=== PATIENT | female | born 1975 | race African-American/Black ===

== ENCOUNTER 2024-02-06 11:07 | Inpatient (IN) | payer OTHER ==
[~2024-02-06] VITALS: Ht 165.1 cm; Wt 64.4 kg
[2024-02-06] MEDS ORDERED: METHOCARBAMOL 750MG TABLET PO SCH (12:30)
[2024-02-06 13:01] LABS: BASOPHILS % 0.5 % (0.0-2.0); DIFFERENTIAL COMMENT 0; EOSINOPHILS % 0.5 % (0.0-5.0); HEMATOCRIT. 42.3 % (36.0-48.0); HEMOGLOBIN. 13.9 g/dL (12.0-16.0); LYMPHOCYTES % 15.5 % (20.0-50.0); MEAN CORPUSCULAR HEMOGLOBIN 24.6 pg (28.0-32.0); MEAN CORPUSCULAR HGB CONC 32.8 g/dL (31.0-37.0); MEAN CORPUSCULAR VOLUME 74.8 fL (81.0-99.0); MEAN PLATELET VOLUME 7.7 fl (7.4-10.4); NEUTROPHILS % 77.5 % (40.0-76.0); PLATELET 231 x1000/uL (130-400); RED BLOOD CELL COUNT 5.65 mill/uL (4.2-5.4); RED CELL DISTRIBUTION WIDTH 15.8 % (11.6-14.6); WHITE BLOOD COUNT 6.9 x1000/uL (4.5-11.0)
[2024-02-06] MEDS: HYDROCODONE/ACETAMINOPHEN 5/325MG TABLET PO ONE (13:02)
[2024-02-06] MEDS: LIDOCAINE 5% PATCH TOP SCH (13:02)
[2024-02-06] MEDS: METHOCARBAMOL 500MG TABLET PO SCH (13:02)
[2024-02-06 13:15] LABS: ALANINE AMINOTRANSFERASE 20 IU/L (10-49); ALBUMIN 4.5 g/dL (3.2-4.8); ASPARTATE AMINOTRANSFERASE 32 IU/L (<34); BILIRUBIN TOTAL 0.6 mg/dL (0.1-1.0); CALCIUM 9.4 mg/dL (8.7-10.4); CARBON DIOXIDE 24 mEq/L (21-32); CHLORIDE 106 mEq/L (98-107); CREATININE 0.9 mg/dL (0.6-1.0); GLUCOSE 144 mg/dL (70-105); POTASSIUM 3.2 mEq/L (3.5-5.1); PROTEIN TOTAL 7.7 g/dL (6.0-8.3); SODIUM 135 mEq/L (136-145); UREA NITROGEN BLOOD 9 mg/dL (9-23)
[2024-02-06 13:20] LABS: HCG SCREEN NEGATIVE
[2024-02-06] MEDS: ONDANSETRON HCL 4MG/2ML INJ IV ONE (13:26)
[2024-02-06] MEDS: POTASSIUM CHLORIDE 20MEQ TABLET SR PO ONE (16:14)
[2024-02-06] MEDS: MORPHINE SULFATE 4 MG/ML INJ (FOR IV/IM USE) IV ONE (16:30)
[2024-02-06] MEDS: POTASSIUM CHLORIDE 20MEQ/PACKET PO NR (16:30)
[2024-02-06] MEDS: DEXT 5%/LACTATED RINGERS 1,000 ML IV SCH (16:31)
[2024-02-06] MEDS ORDERED: ACETAMINOPHEN 325MG TABLET PO PRN (17:45)
[2024-02-06] MEDS ORDERED: IPRATROPIUM/ALBUTEROL 0.5-3(2.5)MG/3ML NEB HHN PRN (17:45)
[2024-02-06] MEDS ORDERED: ONDANSETRON HCL 4MG/2ML INJ IV PRN (17:45)
[2024-02-06] MEDS ORDERED: GUAIFENESIN 200MG/10ML SUGAR FREE UDC PO PRN (17:45)
[2024-02-06] MEDS: MAGNESIUM 2 G PREMIX 50 ML IV NR (21:02)
[2024-02-06 21:06] LABS: PROTHROMBIN TIME 11.6 sec (9.6-11.0)
[2024-02-06] MEDS ORDERED: NALOXONE HCL 0.4MG/ML VIAL IV PRN (21:30)
[2024-02-06 21:38] LABS: CLARITY URINE CLEAR (CLEAR); COLOR URINE YELLOW (YELLOW); GLUCOSE URINE NEGATIVE (NEGATIVE); KETONES URINE NEGATIVE (NEGATIVE); LEUKOCYTE ESTERASE URINE NEGATIVE (NEGATIVE); NITRITE URINE NEGATIVE (NEGATIVE); OCCULT BLOOD URINE NEGATIVE (NEGATIVE); PH URINE 7.5 (4.5-8.0); PROTEIN URINE NEGATIVE (NEGATIVE); SPECIFIC GRAVITY URINE 1.043 (1.005-1.030)
[2024-02-06 21:49] LABS: *AMPHETAMINES SCREEN URINE NEGATIVE (NEGATIVE); *BARBITURATES SCREEN URINE NEGATIVE (NEGATIVE); *BENZODIAZEPINES SCREEN URINE NEGATIVE (NEGATIVE); *COCAINE SCREEN URINE NEGATIVE (NEGATIVE); CANNABINOID URINE SCREEN NEGATIVE (NEGATIVE); ECSTASY MDMA SCREEN URINE NEGATIVE (NEGATIVE); METHADONE URINE SCREEN Neg (NEGATIVE); OPIATES URINE SCREEN PRESUMPTIVE POSITIVE (NEGATIVE); PHENCYCLIDINE URINE SCREEN NEGATIVE (NEGATIVE)
[2024-02-06] MEDS: MORPHINE SULFATE 2 MG/ML CPJ (NOT FOR IM USE) IV PRN (21:57)
[2024-02-06] MEDS: IOHEXOL-300 100 ML BOTTLE ONE (23:42)
[2024-02-07] VITALS (44 sets, daily range): BP systolic 108–185; BP diastolic 74–113; PULSE 43–88; RESP 12–27; TEMP 97–99.6
[2024-02-07] MEDS: HYDROCODONE/ACETAMINOPHEN 5/325MG TABLET PO PRN (04:05)
[2024-02-07 05:26] LABS: ALANINE AMINOTRANSFERASE 16 IU/L (10-49); ASPARTATE AMINOTRANSFERASE 26 IU/L (<34); BILIRUBIN TOTAL 0.6 mg/dL (0.1-1.0); CALCIUM 8.7 mg/dL (8.7-10.4); CARBON DIOXIDE 29 mEq/L (21-32); CHLORIDE 108 mEq/L (98-107); CREATINE KINASE 247 IU/L (34-145); CREATININE 0.8 mg/dL (0.6-1.0); GLUCOSE 110 mg/dL (70-105); PHOSPHORUS 2.6 mg/dL (2.5-4.9); POTASSIUM 3.9 mEq/L (3.5-5.1); PROTEIN TOTAL 6.9 g/dL (6.0-8.3); SODIUM 139 mEq/L (136-145); T4 FREE 1.17 ng/dL (0.89-1.76); THYROID STIMULATING HORMONE 0.17 uIU/mL (0.55-4.78); TROPONIN I HIGH SENSITIVITY 10 ng/L (3.0-34); UREA NITROGEN BLOOD 7 mg/dL (9-23)
[2024-02-07 05:38] LABS: BASOPHILS % 0.4 % (0.0-2.0); DIFFERENTIAL COMMENT 0; EOSINOPHILS % 0.3 % (0.0-5.0); HEMATOCRIT. 40.1 % (36.0-48.0); HEMOGLOBIN. 13.2 g/dL (12.0-16.0); LYMPHOCYTES % 15.1 % (20.0-50.0); MEAN CORPUSCULAR HEMOGLOBIN 24.6 pg (28.0-32.0); MEAN CORPUSCULAR HGB CONC 32.8 g/dL (31.0-37.0); MEAN CORPUSCULAR VOLUME 74.9 fL (81.0-99.0); MEAN PLATELET VOLUME 8.2 fl (7.4-10.4); MONOCYTES % 6.6 % (2.0-8.0); NEUTROPHILS % 77.6 % (40.0-76.0); PLATELET 202 x1000/uL (130-400); RED BLOOD CELL COUNT 5.35 mill/uL (4.2-5.4); RED CELL DISTRIBUTION WIDTH 15.7 % (11.6-14.6); WHITE BLOOD COUNT 7.2 x1000/uL (4.5-11.0)
[2024-02-07] MEDS: LEVOTHYROXINE SODIUM 125MCG TABLET PO SCH (05:43)
[2024-02-07 05:52] LABS: PROTHROMBIN TIME 11.3 sec (9.6-11.0)
[2024-02-07 08:37] LABS: HEPATITIS B SURFACE ANTIGEN NEGATIVE (Negative); HEPATITIS C AB NON REACTIVE (Neg) (Negative)
[2024-02-07] MEDS: PANTOPRAZOLE SODIUM 40 MG/VIAL IV SCH (08:44)
[2024-02-07] MEDS: LISINOPRIL 20MG TABLET PO SCH (08:45)
[2024-02-07] MEDS ORDERED: LIDOCAINE HCL/EPINEPHRINE 1%-EPI 1:100,000 20 ML VIAL ONE (09:21)
[2024-02-07] MEDS ORDERED: BACITRACIN 14GM TUBE TOP ONE (09:21)
[2024-02-07] MEDS ORDERED: THROMBIN (BOVINE) 5000 UNITS/VIAL TOP ONE (09:21)
[2024-02-07] MEDS ORDERED: GENTAMICIN SULF 40MG/ML 2ML VIAL ONE (09:21)
[2024-02-07] MEDS: CLONIDINE 0.1MG TABLET PO PRN (09:52)
[2024-02-07] MEDS ORDERED: NEOSTIGMINE METHYLSULFATE 1MG/ML 10 ML VIAL ONE (12:24)
[2024-02-07] MEDS ORDERED: SUCCINYLCHOLINE CHLORIDE 200MG/10ML IV ONE (12:24)
[2024-02-07] MEDS ORDERED: DEXAMETHASONE 4MG/ML 1ML VIAL ONE (12:24)
[2024-02-07] MEDS ORDERED: PROPOFOL 200MG/20ML VIAL IV ONE ×2 (12:24→15:02)
[2024-02-07] MEDS ORDERED: ROCURONIUM BROMIDE 10MG/ML VIAL 5ML IV ONE (12:24)
[2024-02-07] MEDS ORDERED: GLYCOPYRROLATE 0.2 MG/ML 2ML VIAL ONE ×2 (12:24→12:25)
[2024-02-07] MEDS ORDERED: ONDANSETRON HCL 4MG/2ML INJ ONE (12:24)
[2024-02-07] MEDS ORDERED: MIDAZOLAM HCL 2 MG/2 ML VIAL ONE (12:25)
[2024-02-07] MEDS ORDERED: FENTANYL CITRATE/PF 50MCG/ML 2ML VIAL ONE (12:25)
[2024-02-07] MEDS ORDERED: HYDROMORPHONE HCL/PF 2MG/ML CPJ IV PRN (12:45)
[2024-02-07] MEDS ORDERED: ONDANSETRON HCL 4MG/2ML INJ IV PRN (12:45)
[2024-02-07] MEDS ORDERED: MEPERIDINE HCL/PF 25MG/ML CPJ IV PRN (12:45)
[2024-02-07] MEDS ORDERED: LABETALOL 5MG/ML SYR 20 MG/4 ML SYRINGE IV PRN (12:45)
[2024-02-07] MEDS ORDERED: ALBUTEROL 6.7GM HFA INHALER ONE (14:43)
[2024-02-07] MEDS ORDERED: NICARDIPINE 100 MG in SODIUM CHLORIDE 0.9% 60 ML IV PRN (15:15)
[2024-02-07 16:46] LABS: BG BASE EXCESS -0.8 mmol/L (-2.0-2.0); BG CARBOXYHEMOGLOBIN 1.2 % (0.5-1.5); BG DEOXYHEMOGLOBIN 0.3 % (0.0-5.0); BG FRACTION INSPIRED OXYGEN 100; BG HCO3 ACT 22.3 mmol/L (22.0-26.0); BG METHEMOGLOBIN 0.2 % (0.0-1.5); BG OXYGEN SATURATION 99.7 % (92.0-98.5); BG OXYHEMOGLOBIN 98.3 % (94.0-97.0); BG PCO2 32.5 mmHg (35.0-45.0); BG PH 7.455 (7.350-7.450); BG PO2 276.3 mmHg (75.0-100.0); BG SAMPLE SITE LEFT RADIAL; BG TOTAL HEMOGLOBIN 13.7 g/dL (12.0-18.0); BG VENT MODE VENT - AC
[2024-02-07 17:00] LABS: CREATINE KINASE 323 IU/L (34-145); TROPONIN I HIGH SENSITIVITY 14 ng/L (3.0-34)
[2024-02-07] MEDS: CEFAZOLIN 1000MG PREMIX 50ML IV SCH (18:01)
[2024-02-07 18:10] LABS: BG BASE EXCESS -2.3 mmol/L (-2.0-2.0); BG CARBOXYHEMOGLOBIN 0.5 % (0.5-1.5); BG DEOXYHEMOGLOBIN 3.2 % (0.0-5.0); BG FRACTION INSPIRED OXYGEN 40; BG HCO3 ACT 21.5 mmol/L (22.0-26.0); BG METHEMOGLOBIN 0.2 % (0.0-1.5); BG OXYGEN SATURATION 96.8 % (92.0-98.5); BG OXYHEMOGLOBIN 96.1 % (94.0-97.0); BG PCO2 34.3 mmHg (35.0-45.0); BG PH 7.415 (7.350-7.450); BG PO2 87.8 mmHg (75.0-100.0); BG SAMPLE SITE RIGHT RADIAL; BG TOTAL HEMOGLOBIN 14.6 g/dL (12.0-18.0); BG VENT MODE VENT - CPAP
[2024-02-07] MEDS ORDERED: IPRATROPIUM/ALBUTEROL 0.5-3(2.5)MG/3ML NEB HHN PRN (18:30)
[2024-02-07] MEDS: MORPHINE SULFATE 4 MG/ML INJ (FOR IV/IM USE) IV PRN (18:51)
[2024-02-07] MEDS ORDERED: CEFAZOLIN SODIUM 1000MG/VIAL IV SCH (22:00)
[2024-02-08] VITALS (48 sets, daily range): BP systolic 107–174; BP diastolic 74–134; PULSE 50–73; RESP 12–24; TEMP 97.5–99.1
[2024-02-09] VITALS: BP_SYST 118; BP_SYST 138; BP_DIAS 83; BP_DIAS 84; PULSE 57; PULSE 68; RESP 18; RESP 19; TEMP 97.6; TEMP 98.4
[2024-02-09 02:45] VITALS: BP 160/94; PULSE 61; RESP 18; TEMP 97.5
[2024-02-09] MEDS: HYDRALAZINE 20MG/ML VIAL IV PRN (03:14)
[2024-02-09 06:00] VITALS: BP 142/77; PULSE 67; RESP 18
[2024-02-09 08:00] VITALS: BP 129/66; PULSE 67; PULSE 68; RESP 18; TEMP 97.8
[2024-02-09] MEDS ORDERED: GUAIFENESIN 200MG/10ML SUGAR FREE UDC PO PRN (11:30)
[2024-02-09 12:00] VITALS: BP_SYST 140; BP_SYST 141; BP_DIAS 92; PULSE 68; RESP 18; TEMP 97.1; TEMP 99.1
[2024-02-09] MEDS: GUAIFENESIN 200MG/10ML SUGAR FREE UDC PO NR (12:13)
[2024-02-09] MEDS: AMLODIPINE 2.5MG TABLET PO SCH (13:53)
[2024-02-09] MEDS: DOCUSATE SODIUM 100MG CAPSULE PO PRN (14:04)
[2024-02-09 16:00] VITALS: BP 133/88; PULSE 61; RESP 18; TEMP 98.2
[2024-02-10 04:00] VITALS: BP 140/91; PULSE 63; RESP 19; TEMP 99.9
[2024-02-10 06:38] LABS: BASOPHILS % 0.3 % (0.0-2.0); DIFFERENTIAL COMMENT 0; EOSINOPHILS % 0.2 % (0.0-5.0); HEMATOCRIT. 36.2 % (36.0-48.0); LYMPHOCYTES % 8.7 % (20.0-50.0); MEAN CORPUSCULAR HEMOGLOBIN 24.4 pg (28.0-32.0); MEAN CORPUSCULAR HGB CONC 33.3 g/dL (31.0-37.0); MEAN CORPUSCULAR VOLUME 73.4 fL (81.0-99.0); MEAN PLATELET VOLUME 8.5 fl (7.4-10.4); MONOCYTES % 9.5 % (2.0-8.0); NEUTROPHILS % 81.3 % (40.0-76.0); PLATELET 146 x1000/uL (130-400); RED BLOOD CELL COUNT 4.93 mill/uL (4.2-5.4); RED CELL DISTRIBUTION WIDTH 15.3 % (11.6-14.6); WHITE BLOOD COUNT 8.8 x1000/uL (4.5-11.0)
[2024-02-10 06:49] LABS: CALCIUM 8.1 mg/dL (8.7-10.4); CARBON DIOXIDE 26 mEq/L (21-32); CHLORIDE 104 mEq/L (98-107); CREATININE 0.6 mg/dL (0.6-1.0); GLUCOSE 112 mg/dL (70-105); POTASSIUM 3.5 mEq/L (3.5-5.1); SODIUM 136 mEq/L (136-145)
[2024-02-10 07:06] LABS: UREA NITROGEN BLOOD < 5 mg/dL (9-23)
[2024-02-10 08:00] VITALS: BP 134/79; PULSE 51; RESP 16; TEMP 97.7
[2024-02-10] MEDS: AMLODIPINE 2.5MG TABLET PO SCH (08:41)
[2024-02-10 12:00] VITALS: BP 154/89; PULSE 58; RESP 18; TEMP 97.9
[2024-02-10] MEDS ORDERED: THROAT LOZENGES-BENZOCAINE/MENTH/CETYLPYRD CL LOZENGES MM PRN (15:30)
[2024-02-10 15:55] VITALS: BP 150/95; PULSE 70; RESP 18; TEMP 98.1
[2024-02-10 20:00] VITALS: BP 145/89; PULSE 70; RESP 19
[2024-02-11] VITALS (7 sets, daily range): BP systolic 141–165; BP diastolic 76–102; PULSE 62–71; RESP 17–20; TEMP 97.5–99.8
[2024-02-11 06:38] LABS: BASOPHILS % 0.3 % (0.0-2.0); DIFFERENTIAL COMMENT 0; EOSINOPHILS % 0.8 % (0.0-5.0); HEMATOCRIT. 36.1 % (36.0-48.0); HEMOGLOBIN. 12.1 g/dL (12.0-16.0); LYMPHOCYTES % 13.1 % (20.0-50.0); MEAN CORPUSCULAR HEMOGLOBIN 24.3 pg (28.0-32.0); MEAN CORPUSCULAR HGB CONC 33.5 g/dL (31.0-37.0); MEAN CORPUSCULAR VOLUME 72.7 fL (81.0-99.0); MEAN PLATELET VOLUME 8.7 fl (7.4-10.4); MONOCYTES % 11.3 % (2.0-8.0); NEUTROPHILS % 74.5 % (40.0-76.0); PLATELET 189 x1000/uL (130-400); RED BLOOD CELL COUNT 4.96 mill/uL (4.2-5.4); WHITE BLOOD COUNT 7.5 x1000/uL (4.5-11.0)
[2024-02-11] MEDS: AMLODIPINE 5MG TABLET PO SCH (08:41)
[2024-02-11] MEDS: FAMOTIDINE 20MG TABLET PO SCH (08:41)
[2024-02-11] MEDS: LACTULOSE 20G/30ML UDC PO NR (12:44)
[2024-02-11] MEDS ORDERED: THROAT LOZENGES-BENZOCAINE/MENTH/CETYLPYRD CL LOZENGES MM PRN (20:45)
[2024-02-12] VITALS (7 sets, daily range): BP systolic 122–152; BP diastolic 66–99; PULSE 57–68; RESP 17–22; TEMP 97.4–99.1
[2024-02-12 06:46] LABS: BASOPHILS % 0.4 % (0.0-2.0); DIFFERENTIAL COMMENT 0; EOSINOPHILS % 1.9 % (0.0-5.0); HEMATOCRIT. 34.1 % (36.0-48.0); HEMOGLOBIN. 11.4 g/dL (12.0-16.0); LYMPHOCYTES % 14.7 % (20.0-50.0); MEAN CORPUSCULAR HEMOGLOBIN 24.1 pg (28.0-32.0); MEAN CORPUSCULAR HGB CONC 33.3 g/dL (31.0-37.0); MEAN CORPUSCULAR VOLUME 72.3 fL (81.0-99.0); MEAN PLATELET VOLUME 8.1 fl (7.4-10.4); MONOCYTES % 13.1 % (2.0-8.0); NEUTROPHILS % 69.9 % (40.0-76.0); PLATELET 194 x1000/uL (130-400); RED BLOOD CELL COUNT 4.72 mill/uL (4.2-5.4); RED CELL DISTRIBUTION WIDTH 14.7 % (11.6-14.6); WHITE BLOOD COUNT 5.7 x1000/uL (4.5-11.0)
[2024-02-12 07:55] LABS: CALCIUM 8.2 mg/dL (8.7-10.4); CARBON DIOXIDE 25 mEq/L (21-32); CHLORIDE 104 mEq/L (98-107); CREATININE 0.5 mg/dL (0.6-1.0); GLUCOSE 98 mg/dL (70-105); POTASSIUM 3.2 mEq/L (3.5-5.1); SODIUM 135 mEq/L (136-145)
[2024-02-12 08:20] LABS: UREA NITROGEN BLOOD < 5 mg/dL (9-23)
[2024-02-12] MEDS: POTASSIUM CHLORIDE 20MEQ TABLET SR PO NR (12:29)
[2024-02-12] MEDS: ACETAMINOPHEN 325MG TABLET PO PRN (16:13)
[2024-02-12] MEDS: LISINOPRIL 20MG TABLET PO SCH (22:11)
[2024-02-13] VITALS: BP 149/73; PULSE 57; RESP 19; TEMP 97.6
[2024-02-13 04:00] VITALS: BP 126/77; PULSE 55; RESP 18; TEMP 97.3
[2024-02-13 08:00] VITALS: BP 128/74; PULSE 62; RESP 18; TEMP 97.6
[2024-02-13] MEDS: LACTULOSE 20G/30ML UDC PO SCH (11:17)
[2024-02-13] MEDS: KETOROLAC 15MG/ML VIAL IV PRN (11:21)
[2024-02-13 12:00] VITALS: BP_SYST 133; BP_DIAS 74; BP_DIAS 86; PULSE 61; RESP 18; TEMP 97.7
[2024-02-13 16:00] VITALS: BP 120/74; PULSE 66; RESP 17; TEMP 97.7
[2024-02-13 20:00] VITALS: BP 142/79; PULSE 61; RESP 18; TEMP 99.1
[2024-02-14] VITALS: BP 124/79; PULSE 67; RESP 18; TEMP 98.7
[2024-02-14 08:00] VITALS: BP 139/91; PULSE 60; RESP 18; TEMP 98.1
[2024-02-14 12:00] VITALS: BP 137/76; PULSE 59; RESP 18; TEMP 98.6
[2024-02-14 14:33] VITALS: BP 137/76; PULSE 59; TEMP 98.6; O2SAT 100
[2024-02-14 16:00] VITALS: BP_SYST 132; BP_SYST 134; BP_DIAS 94; PULSE 60; PULSE 64; RESP 18; TEMP 98.2; TEMP 99.1
[2024-02-14 20:00] VITALS: BP 123/84; PULSE 57; RESP 18; TEMP 97.2
[2024-02-15] VITALS: BP 118/85; PULSE 62; RESP 18; TEMP 97.3
[2024-02-15 04:00] VITALS: BP 122/78; PULSE 64; RESP 18; TEMP 97.2
[2024-02-15 08:28] VITALS: BP 127/65; PULSE 66; RESP 18; TEMP 97.5
== END 2024-02-15 11:25 | DRG 460 ==
LOC: ER 11:07 → MICUSO 02-07 02:18 → 7EST 02-08 17:40
PROVIDERS: ADMIT Internal Medicine; ATTEND Internal Medicine
PROC: 0SG00J1 Fusion of Lumbar Vertebral Joint with Synthetic Substitute, Posterior Approach, Posterior Column, Open Approach (ICD-10-PCS; principal; 2024-02-07)
PROC: 0RGA0J1 Fusion of Thoracolumbar Vertebral Joint with Synthetic Substitute, Posterior Approach, Posterior Column, Open Approach (ICD-10-PCS; 2024-02-07)
PROC: 01NB0ZZ Release Lumbar Nerve, Open Approach (ICD-10-PCS; 2024-02-07)
PROC: 01N80ZZ Release Thoracic Nerve, Open Approach (ICD-10-PCS; 2024-02-07)
PROC: 5A1935Z Respiratory Ventilation, Less than 24 Consecutive Hours (ICD-10-PCS; 2024-02-07)
PROC: 0BH17EZ Insertion of Endotracheal Airway into Trachea, Via Natural or Artificial Opening (ICD-10-PCS; 2024-02-07)
DX: S32.011A Stable burst fracture of first lumbar vertebra, initial encounter for closed fracture (principal); S22.089A Unspecified fracture of T11-T12 vertebra, initial encounter for closed fracture; E87.1 Hypo-osmolality and hyponatremia; G82.20 Paraplegia, unspecified; E87.6 Hypokalemia; I10 Essential (primary) hypertension; N31.9 Neuromuscular dysfunction of bladder, unspecified; K59.03 Drug induced constipation; T40.605A Adverse effect of unspecified narcotics, initial encounter; Z20.822 Contact with and (suspected) exposure to COVID-19; E03.9 Hypothyroidism, unspecified; F17.210 Nicotine dependence, cigarettes, uncomplicated; V89.2XXA Person injured in unspecified motor-vehicle accident, traffic, initial encounter; Y92.410 Unspecified street and highway as the place of occurrence of the external cause
CPT/HCPCS: 36415; 36600; 71045; 72080; 72131; 72148; 74177; 76000; 80048; 80053; 80305; 81003; 82375; 82550; 82805; 83735; 84100; 84145; 84439; 84443; 84484; 84703; 85025; 86705; 86850; 86900; 87340; 87426; 93005; 93970; 94003; 97116; 97162; 97167; 97530; 97535; 99291; C1713; C9113; J0330; J0360; J0690; J1100; J1580; J1885; J2250; J2270; J2405; J2704; J2710; J3010; J3475; J3490; J7030; J7050; Q9967; A4315